=== PATIENT | male | born 1995 | race Two or more races ===

== ENCOUNTER 2019-09-28 10:29 | Emergency (ER) | payer SELFPAY ==
[~2019-09-28] VITALS: Ht 188 cm; Wt 104.3 kg
[2019-09-28 10:34] VITALS: BP 139/69
== END 2019-09-28 11:12 | disposition home or self-care (01) ==
LOC: ER 10:36
DX: S51.812D Laceration without foreign body of left forearm, subsequent encounter (principal); X58.XXXD Exposure to other specified factors, subsequent encounter